=== PATIENT | female | born 2000 | race Caucasian/White ===

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

== ENCOUNTER 2022-09-11 10:05 | Emergency (ER) | payer MEDICAID ==
[~2022-09-11] VITALS: Ht 175.3 cm; Wt 54.2 kg
[2022-09-11 11:22] LABS: Urine Bacteria FEW /hpf (None Seen); Urine Blood 3+ /uL (Negative); Urine Specific Gravity 1.004 (1.001-1.035); Urine WBC 30 /hpf (0 - 5)
[2022-09-11 11:48] VITALS: BP 130/64; PULSE 75; RESP 18; O2SAT 99
[2022-09-11] MEDS ORDERED: ACETAMINOPHEN 500 MG TAB PO ONE (12:00)
[2022-09-11] MEDS ORDERED: cefTRIAXone SOD 1,000 MG VL IM ONE (12:00)
[2022-09-11 12:10] VITALS: TEMP 97.9
[2022-09-11] MEDS ORDERED: IBUP-1454 PO (12:41)
[2022-09-11] MEDS ORDERED: CIPR-173 PO (12:41)
== END 2022-09-11 12:59 | disposition home or self-care (01) ==
LOC: ER 10:05
DX: N39.0 Urinary tract infection, site not specified (principal); M54.50 Low back pain, unspecified; Z32.02 Encounter for pregnancy test, result negative
CPT/HCPCS: 81001; 81025; 96372; 99283; J0696

== ENCOUNTER 2023-07-24 04:53 | Emergency (ER) | payer MEDICAID ==
[~2023-07-24] VITALS: Ht 177.8 cm; Wt 56.2 kg
[~2023-07-24 04:53] MED LIST: CIPR-173 PO; IBUP-1454 PO
[2023-07-24 05:02] VITALS: BP 111/74; PULSE 76; RESP 20; TEMP 98.2
[2023-07-24 06:04] VITALS: O2SAT 99
[2023-07-24] MEDS ORDERED: AUG875T PO (06:15)
[2023-07-24] MEDS ORDERED: METH4PAK PO (06:15)
== END 2023-07-24 06:38 | disposition home or self-care (01) ==
LOC: ER 04:53
DX: H66.92 Otitis media, unspecified, left ear (principal)